=== PATIENT | female | born 2000 | race African-American/Black ===

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

== ENCOUNTER → 2019-01-22 10:34 | Outpatient (CLI) | payer OTHER, SELFPAY ==
--- NOTE | 2019-01-22 10:49 | US_ITS ---
US transvaginal HISTORY: ITS.REASON: US T/V- Abnormal and painful periods ORDERING PHYSICIAN: Lupillo Riggins MD PATIENT AGE: 18 years Comparison: Transvaginal ultrasound pelvis 09/24/2018 FINDINGS: UTERUS: The uterus measures 6.6 x 2.4 x 4.0 cm. Combined endometrial thickness is 0.2 cm. RIGHT OVARY: 3.7 x 2.6 x 2.7 cm. There are multiple tiny follicular cysts noted. LEFT OVARY: 3.7 x 2.4 x 2.7 cm and contains multiple tiny follicular cysts. CUL-DE-SAC FLUID: There is a small amount of cul-de-sac fluid likely physiologic. OTHER FINDINGS: None IMPRESSION: Normal sized ovaries with multiple follicular cysts similar in appearance to the previous study
[2019-01-22 11:28] LABS: Basophils % 0.6 % (0.1-2.0); Eosinophils # 0.1 K/mm3 (0.0-0.4); Eosinophils % 1.3 % (0.1-12.0); Hematocrit 40.2 % (37.0-47.0); Hemoglobin 12.1 g/dL (12.2-16.2); Lymphocytes % 32.4 % (10-50); Mean Corpuscular HGB Conc 30.2 g/dL (31.8-35.4); Mean Corpuscular Hemoglobin 26.8 pg (27.0-31.2); Mean Corpuscular Volume 88.8 fl (81-99); Mean Platelet Volume 7.2 fl (7.4-10.4); Monocytes # 0.3 K/mm3 (0.1-1.0); Monocytes % 5.2 % (1.7-9.3); Neutrophils # 3.8 K/mm3 (1.8-7.8); Neutrophils % 60.5 % (37.0-80.0); Platelet Count 260 K/mm3 (142-424); Red Blood Count 4.53 M/mm3 (4.20-5.40); White Blood Count 6.3 K/mm3 (4.5-13.0)
[2019-01-22 14:05] LABS: Alanine Aminotransferase 17 U/L (12-78); Albumin Level 3.7 gm/dL (3.4-5.0); Albumin/Globulin Ratio 1.3 (1.1-1.8); Alkaline Phosphatase 58 U/L (46-116); Anion Gap 15.2 mEq/L (5-15); Aspartate Amino Transferase 14 U/L (15-37); Bilirubin,Total 0.1 mg/dL (0.2-1.0); Blood Urea Nitrogen 12 mg/dL (7-18); Calcium 8.5 mg/dL (8.5-10.1); Carbon Dioxide 27 mmol/L (21.0-32.0); Chloride 106 mmol/L (98-107); Creatinine,Serum 0.67 mg/dL (0.55-1.02); Estimated Glomerular Filt Rate 113 ml/min (>60); Free Thyroxine Index 2.2 ug/dL (5.93-13.13); GFR (African American) 137 ML/MIN (>60); Globulin 2.9 gm/dl (1.3-3.2); Glucose 82 mg/dL (74-106); Potassium 4.2 mmoL/L (3.5-5.1); Sodium 144 mmol/L (136-145); Thyroid Stimulating Hormone 1.26 uIU/ml (0.516-4.13); Total Protein,Serum 6.6 gm/dL (6.4-8.2); Triiodothryronine (T3) Uptake 32 % (31-39)
[2019-01-23 20:51] LABS: FSH 5.7 mIU/mL (.); LH 11.3 mIU/mL (.); Prolactin 23.3 ng/mL (4.8-23.3)
== END ==
PROVIDERS: PCP Emergency Medicine; Visit Provider Nurse Practitioner Obstetrics & Gynecology
DX: N92.6 Irregular menstruation, unspecified (principal); N94.6 Dysmenorrhea, unspecified
CPT/HCPCS: 36415; 76830; 80053; 83001; 83002; 84146; 84436; 84443; 84479; 85025

== ENCOUNTER 2019-02-02 15:36 | Emergency (ER) | payer OTHER, SELFPAY ==
[2019-02-02 15:37] VITALS: BP 124/68; PULSE 100; RESP 20; TEMP 36.8; O2SAT 98; BMI 23.0
--- NOTE | 2019-02-02 15:51 | HMH.EDUTC ---
[facility] [place] Clinical Impression: Irritable bowel syndrome Qualifiers: Irritable bowel syndrome type: unspecified Qualified Code(s): K58.9 - Irritable bowel syndrome without diarrhea Disposition: Home, Self-Care Condition on Discharge: Good Instructions: Irritable Bowel Syndrome, High-Fiber Diet, DI for Irritable Bowel Syndrome Additional Instructions: Eat a high fiber diet. Discuss getting a referral to a account coordinator with your primary care provider. Drink plenty of water. You should drink at least 64 ounces per day. Off work tonight. GO TO THE ER FOR ANY WORSENING SYMPTOMS Prescriptions: Inulin [Fiber Gummies] 2 gm PO DAILY #1 bottle Referrals: Yudith Gomez PA [Primary Care Provider] - Forms: Work/School Release Time of Disposition: 16:19 Medical Decision Making - Medical Records Medical records reviewed: Yes: I reviewed the patient's medical records. - Arsh Inquiry Pt receiving controlled substance: No Arsh was queried for this patient: No Vital Signs: 02/02/19 15:37 02/02/19 16:25 Temperature 98.3 F 98.3 F Temperature Source Oral Pulse Rate 100 H Pulse Rate [Right Radial] 100 H Respiratory Rate 20 20 Blood Pressure 124/68 Blood Pressure [Right Arm] 124/68 Blood Pressure Mean [Right Arm] 86 Blood Pressure Source [Right Arm] Automatic Cuff Blood Pressure Position [Right Arm] Sitting 02 Sat by Pulse Oximetry 98 Oxygen Delivery Method Room Air Orders (Tests/Meds): ED MEDICATIONS Discontinued Medications Generic Name Dose Route Start Last Admin Trade Name Freq PRN Reason Stop Dose Admin Ketorolac Tromethamine 60 mg 02/02/19 16:13 02/02/19 16:03 Toradol 60mg/2ml Vial IM 02/02/19 16:14 60 mg ONCE ONE Administration [facility] [place] - General Stated complaint: Stomach Pain/Constipated Time Seen by Provider: 02/02/19 15:52 - History of Present Illness Provider Complaint: She c/o episodes of abdominal and cramping. She has had this problem intermitently for the past 2 to 3 years, but it is getting worse. She has an appointment with her primary care provider in 2 days for this issue, but she is having worse abdominal pain today. - Related Data Previous Rx's Medication Instructions Recorded [id number]-ohamrxyderknwmu-ZQ 5 ml PO Q4-6H PRN #118 ml 01/27/19 2 mg-30 mg-10 mg/5 mL oral syrup doxycycline monohydrate 100 mg 100 mg PO BID 5 Days #10 cap 01/27/19 capsule prednisone 20 mg tablet 20 mg PO BID 5 Days #10 tab 01/27/19 Inulin [Fiber Gummies] 2 gm PO DAILY #1 bottle 02/02/19 Allergies Allergy/AdvReac Type Severity Reaction Status Date / Time No Known Allergies Allergy Verified 01/27/19 16:27 [facility] History - Hepatitis A Screen Attestation statement:: This patient has been screened for Hepatitis A risk factors. I have reviewed the patient's past medical history: Yes Medical History: Reports:: Anxiety, Depression, Migraine Denies:: Cancer, Diabetes Mellitus Type 1, Diabetes Mellitus Type 2, MRSA Comment: Ibs, Heavy periods. Laterality Cases: Other Surgeries: Yes: No Previous Surgery, Other Amputation: No Fractures: No - Social History Smoking Status: Current every day smoker Tobacco Type: cigarettes # Packs/Day (cigarettes): 1 Alcohol Intake: current Substance Use Type: marijuana Occupational Status: employed Housing: house Household Members: family - Psychiatric History Pschychiatric History:: Reports:: Anxiety, Depression Family Hx:: Diabetes, Hypertension ROS Obtained: Yes All systems reviewed & no additional complaints - Constitutional Constitutional: Denies chills, Denies fever(s) - Eyes Eyes: Denies eye discharge - ENT Ears, Nose, Mouth, and Throat: Denies sore throat - Cardiovascular Cardiovascular: Denies chest pain - Respiratory Respiratory: No chest congestion, No cough - Gastrointestinal Gastrointestingal: Reports: as per HPI Physical Exam - General Gene
--- NOTE | 2019-02-02 16:01 | ED_ITS ---
[facility] [place] Clinical Impression: Irritable bowel syndrome Qualifiers: Irritable bowel syndrome type: unspecified Qualified Code(s): K58.9 - Irritable bowel syndrome without diarrhea Disposition: Home, Self-Care Condition on Discharge: Good Instructions: Irritable Bowel Syndrome, High-Fiber Diet, DI for Irritable Bowel Syndrome Additional Instructions: Eat a high fiber diet. Discuss getting a referral to a blueprint developer with your primary care provider. Drink plenty of water. You should drink at least 64 ounces per day. Off work tonight. GO TO THE ER FOR ANY WORSENING SYMPTOMS Prescriptions: Inulin [Fiber Gummies] 2 gm PO DAILY #1 bottle Referrals: Yudith Gomez PA [Primary Care Provider] - Forms: Work/School Release Time of Disposition: 16:19 Medical Decision Making - Medical Records Medical records reviewed: Yes: I reviewed the patient's medical records. - Arsh Inquiry Pt receiving controlled substance: No Arsh was queried for this patient: No Vital Signs: 02/02/19 15:37 02/02/19 16:25 Temperature 98.3 F 98.3 F Temperature Source Oral Pulse Rate 100 H Pulse Rate [Right Radial] 100 H Respiratory Rate 20 20 Blood Pressure 124/68 Blood Pressure [Right Arm] 124/68 Blood Pressure Mean [Right Arm] 86 Blood Pressure Source [Right Arm] Automatic Cuff Blood Pressure Position [Right Arm] Sitting 02 Sat by Pulse Oximetry 98 Oxygen Delivery Method Room Air Orders (Tests/Meds): ED MEDICATIONS Discontinued Medications Generic Name Dose Route Start Last Admin Trade Name Freq PRN Reason Stop Dose Admin Ketorolac Tromethamine 60 mg 02/02/19 16:13 02/02/19 16:03 Toradol 60mg/2ml Vial IM 02/02/19 16:14 60 mg ONCE ONE Administration [facility] [place] HPI - General Stated complaint: Stomach Pain/Constipated Time Seen by Provider: 02/02/19 15:52 - History of Present Illness Provider Complaint: She c/o episodes of abdominal and cramping. She has had this problem intermitently for the past 2 to 3 years, but it is getting worse. She has an appointment with her primary care provider in 2 days for this issue, but she is having worse abdominal pain today. - Related Data Previous Rx's Medication Instructions Recorded mhlxpagytipadoz-fqoascrakbwnnhg-BV 5 ml PO Q4-6H PRN #118 ml 01/27/19 2 mg-30 mg-10 mg/5 mL oral syrup doxycycline monohydrate 100 mg 100 mg PO BID 5 Days #10 cap 01/27/19 capsule prednisone 20 mg tablet 20 mg PO BID 5 Days #10 tab 01/27/19 Inulin [Fiber Gummies] 2 gm PO DAILY #1 bottle 02/02/19 Allergies Allergy/AdvReac Type Severity Reaction Status Date / Time No Known Allergies Allergy Verified 01/27/19 16:27 [facility] History - Hepatitis A Screen Attestation statement:: This patient has been screened for Hepatitis A risk factors. I have reviewed the patient's past medical history: Yes Medical History: Reports:: Anxiety, Depression, Migraine Denies:: Cancer, Diabetes Mellitus Type 1, Diabetes Mellitus Type 2, MRSA Comment: Ibs, Heavy periods. Laterality Cases: Other Surgeries: Yes: No Previous Surgery,
[2019-02-02 16:25] VITALS: BP 124/68; PULSE 100; RESP 20; TEMP 36.8; O2SAT 98
== END 2019-02-02 16:25 | disposition home or self-care (01) ==
PROVIDERS: Emergency Provider Nurse Practitioner Family; PCP Physician Assistant
DX: K58.9 Irritable bowel syndrome, unspecified (principal); F41.8 Other specified anxiety disorders; F17.210 Nicotine dependence, cigarettes, uncomplicated; G43.709 Chronic migraine without aura, not intractable, without status migrainosus
CPT/HCPCS: 96372; 99202

== ENCOUNTER → 2019-02-04 13:23 | Outpatient (CLI) | payer OTHER, SELFPAY ==
[2019-02-04 13:35] LABS: Basophils % 0.5 % (0.1-2.0); Eosinophils # 0.1 K/mm3 (0.0-0.4); Hematocrit 39.5 % (37.0-47.0); Hemoglobin 11.7 g/dL (12.2-16.2); Lymphocytes # 2.4 K/mm3 (0.7-4.5); Mean Corpuscular HGB Conc 29.7 g/dL (31.8-35.4); Mean Corpuscular Hemoglobin 25.1 pg (27.0-31.2); Mean Corpuscular Volume 84.5 fl (81-99); Mean Platelet Volume 7.8 fl (7.4-10.4); Monocytes # 0.6 K/mm3 (0.1-1.0); Monocytes % 7.8 % (1.7-9.3); Neutrophils # 4.6 K/mm3 (1.8-7.8); Neutrophils % 59.6 % (37.0-80.0); Platelet Count 287 K/mm3 (142-424); Red Blood Count 4.68 M/mm3 (4.20-5.40); Red Cell Distribution Width 13.6 % (11.5-17.5); White Blood Count 7.7 K/mm3 (4.5-13.0)
[2019-02-04 15:14] LABS: Alanine Aminotransferase 20 U/L (12-78); Albumin Level 3.8 gm/dL (3.4-5.0); Albumin/Globulin Ratio 1.3 (1.1-1.8); Alkaline Phosphatase 57 U/L (46-116); Anion Gap 16.1 mEq/L (5-15); Aspartate Amino Transferase 16 U/L (15-37); Bilirubin,Total 0.3 mg/dL (0.2-1.0); Blood Urea Nitrogen 11 mg/dL (7-18); Calcium 8.8 mg/dL (8.5-10.1); Carbon Dioxide 26 mmol/L (21.0-32.0); Chloride 106 mmol/L (98-107); Chol/HDL Ratio 3.4 (1-3.5); Cholesterol 171 mg/dL (140-200); Creatinine,Serum 0.69 mg/dL (0.55-1.02); Estimated Glomerular Filt Rate 110 ml/min (>60); GFR (African American) 133 ML/MIN (>60); Glucose 74 mg/dL (74-106); HDL Cholesterol 50 mg/dL (29-89); LDL Cholesterol 107 mg/dL (0-130); Potassium 4.1 mmoL/L (3.5-5.1); Sodium 144 mmol/L (136-145); T4 (Thyroxine) 9.2 ug/dl (5.4-10.6); Thyroid Stimulating Hormone 2.18 uIU/ml (0.516-4.13); Total Protein,Serum 6.8 gm/dL (6.4-8.2); Triglycerides 69 mg/dL (30-200); VLDL Cholesterol 14 mg/dL (0-40)
[2019-02-04 15:26] LABS: C-Reactive Protein < 0.2 mg/L (0.0-0.9)
[2019-02-04 15:27] LABS: Erythrocyte Sedimentation Rate 10 mm/hr (0-20)
[2019-02-05 11:42] LABS: HCG Qualitative, Serum Negative (Negative)
[2019-02-05 12:02] LABS: Ferritin 8 ng/mL (8-388)
[2019-02-06 08:30] LABS: Iron 41 ug/dL (27-159); UIBC 349 ug/dL (131-425)
[2019-02-07 21:39] LABS: Iron Saturation 11 % (15-55)
== END ==
PROVIDERS: Visit Provider Physician Assistant
DX: R10.9 Unspecified abdominal pain (principal); D64.9 Anemia, unspecified
CPT/HCPCS: 80053; 80061; 82728; 83540; 83550; 84436; 84443; 84703; 85025; 85651; 86140

== ENCOUNTER → 2019-03-01 11:59 | Outpatient (CLI) | payer OTHER, SELFPAY ==
[2019-03-01 13:34] LABS: HCG Qualitative, Serum Negative (Negative)
[2019-03-02 07:10] LABS: Hep A Ab, IgM Negative (Negative); Hepatitis B Core Antibody IgM Negative (Negative); Hepatitis B Surface Antigen Negative (Negative)
[2019-03-02 12:58] LABS: HSV 2 IgG, Type Spec <0.91 index (0.00-0.90); Rapid Plasma Reagin Ab Titer Non Reactive (NonRea<1:1)
[2019-03-02 12:59] LABS: HIV Screen 4th Generation wRfx Non Reactive (Non Reactive); Hepatitis C Antibody 0.1 s/co ratio (0.0-0.9)
[2019-03-05 10:30] LABS: Neisseria gonorrhoeae, NAA Negative (Negative)
== END ==
PROVIDERS: Visit Provider Nurse Practitioner Obstetrics & Gynecology
DX: Z72.51 High risk heterosexual behavior (principal)
CPT/HCPCS: 36415; 80074; 84703; 86592; 86695; 86696; 86703; 86790; 87491; 87591; G0432

== ENCOUNTER → 2019-04-07 14:13 | Outpatient (CLI) | payer OTHER, SELFPAY ==
[2019-04-07 14:56] LABS: HCG Qualitative, Serum Negative (Negative)
[2019-04-14 05:19] LABS: Neisseria gonorrhoeae, NAA Negative (Negative)
== END ==
PROVIDERS: Visit Provider Nurse Practitioner Obstetrics & Gynecology
DX: N93.9 Abnormal uterine and vaginal bleeding, unspecified (principal); Z72.51 High risk heterosexual behavior
CPT/HCPCS: 36415; 84703; 87491; 87591

== ENCOUNTER → 2019-07-26 12:00 | Outpatient (CLI) | payer OTHER, SELFPAY ==
[2019-07-26 12:17] LABS: Basophils % 0.5 % (0.1-2.0); Eosinophils # 0.1 K/mm3 (0.0-0.4); Eosinophils % 0.9 % (0.1-12.0); Hematocrit 42.7 % (37.0-47.0); Hemoglobin 12.8 g/dL (12.2-16.2); Lymphocytes # 1.8 K/mm3 (0.7-4.5); Lymphocytes % 21.2 % (10-50); Mean Corpuscular HGB Conc 29.9 g/dL (31.8-35.4); Mean Corpuscular Hemoglobin 26.5 pg (27.0-31.2); Mean Corpuscular Volume 88.7 fl (81-99); Mean Platelet Volume 7.2 fl (7.4-10.4); Monocytes # 0.3 K/mm3 (0.1-1.0); Monocytes % 3.9 % (1.7-9.3); Neutrophils # 6.2 K/mm3 (1.8-7.8); Neutrophils % 73.4 % (37.0-80.0); Platelet Count 275 K/mm3 (142-424); Red Blood Count 4.82 M/mm3 (4.20-5.40); Red Cell Distribution Width 14.9 % (11.5-17.5); White Blood Count 8.5 K/mm3 (4.5-13.0)
[2019-07-26 14:18] LABS: Alanine Aminotransferase 15 U/L (12-78); Albumin/Globulin Ratio 1.4 (1.1-1.8); Alkaline Phosphatase 55 U/L (46-116); Anion Gap 13.3 mEq/L (5-15); Aspartate Amino Transferase 13 U/L (15-37); Bilirubin,Total 0.2 mg/dL (0.2-1.0); Blood Urea Nitrogen 9 mg/dL (7-18); Calcium 8.4 mg/dL (8.5-10.1); Carbon Dioxide 27 mmol/L (21.0-32.0); Chloride 108 mmol/L (98-107); Estimated Glomerular Filt Rate 129 ml/min (>60); GFR (African American) 156 ML/MIN (>60); Globulin 2.8 gm/dl (1.3-3.2); Glucose 70 mg/dL (74-106); Potassium 4.3 mmoL/L (3.5-5.1); Sodium 144 mmol/L (136-145); Total Protein,Serum 6.8 gm/dL (6.4-8.2)
== END ==
PROVIDERS: Visit Provider Nurse Practitioner Obstetrics & Gynecology
DX: N93.9 Abnormal uterine and vaginal bleeding, unspecified (principal)
CPT/HCPCS: 36415; 80053; 85025

== ENCOUNTER → 2019-10-06 13:55 | Outpatient (CLI) | payer OTHER, SELFPAY ==
[2019-10-06 17:34] LABS: HCG,Quantitative 42 mIU/ml (0-5.42)
== END ==
PROVIDERS: Visit Provider Nurse Practitioner Obstetrics & Gynecology
DX: Z34.90 Encounter for supervision of normal pregnancy, unspecified, unspecified trimester (principal)
CPT/HCPCS: 36415; 84702

== ENCOUNTER → 2019-10-21 08:16 | Outpatient (CLI) | payer OTHER, SELFPAY ==
[2019-10-21 10:15] LABS: HCG,Quantitative 16006 mIU/ml (0-5.42)
--- NOTE | 2019-10-21 12:28 | US_ITS ---
PROCEDURE: US OB TRANSVAGINAL CLINICAL INDICATION: OB TV US for spotting and possible threatened ab Early with spotting COMPARISON: TRANVAG US transvaginal from 01/22/2019 FINDINGS: There is an intrauterine gestational sac present with yolk sac noted. What may be a crown-rump length is present measuring 1.2 mm too small to evaluate. There is a 3.3 cm left ovarian cyst. There is blood flow in the left ovary. The right ovary is unremarkable with blood flow. A small amount of fluid is in cul-de-sac IMPRESSION: There is an intrauterine gestational sac present with pole. Cannot confirm viability at this time. Follow-up recommended Dictated by: Ra Hoyt MD 10/21/2019 14:12 Electronically signed by Ra Hoyt MD in [place] 10/21/2019 14:12
== END ==
PROVIDERS: Visit Provider Nurse Practitioner Obstetrics & Gynecology
DX: O20.0 Threatened abortion (principal); O26.851 Spotting complicating pregnancy, first trimester
CPT/HCPCS: 36415; 76817; 84702

== ENCOUNTER 2019-11-11 11:02 | Outpatient (CLI) | payer OTHER, SELFPAY ==
[2019-11-11 11:42] LABS: Basophils % 0.2 % (0.1-2.0); Eosinophils # 0.2 K/mm3 (0.0-0.4); Eosinophils % 1.6 % (0.1-12.0); Hematocrit 38.7 % (37.0-47.0); Hemoglobin 12.9 g/dL (12.2-16.2); Lymphocytes # 1.3 K/mm3 (0.7-4.5); Lymphocytes % 9.2 % (10-50); Mean Corpuscular HGB Conc 33.2 g/dL (31.8-35.4); Mean Corpuscular Hemoglobin 27.4 pg (27.0-31.2); Mean Corpuscular Volume 82.5 fl (81-99); Mean Platelet Volume 7.4 fl (7.4-10.4); Monocytes # 0.4 K/mm3 (0.1-1.0); Monocytes % 3.2 % (1.7-9.3); Neutrophils # 11.9 K/mm3 (1.8-7.8); Neutrophils % 85.8 % (37.0-80.0); Platelet Count 285 K/mm3 (142-424); Red Cell Distribution Width 14.6 % (11.5-17.5); White Blood Count 13.9 K/mm3 (4.5-13.0)
[2019-11-11 11:51] LABS: MANUAL DIFFERENTIAL MANUAL DIFFERENTIAL (MANUAL DIFF)
[2019-11-11 11:52] VITALS: BMI 22.6
[2019-11-11 12:10] VITALS: BP 126/68; PULSE 72; RESP 18; TEMP 36.7; O2SAT 99; BMI 22.6
[2019-11-11 12:28] LABS: Barbiturates Screen,Urine Negative ng/ml (<200)
[2019-11-11 12:29] LABS: Amphetamine/Metha Screen,Urine Negative ng/ml (<1000); Benzodiazepines Screen,Urine Negative ng/ml (<200)
[2019-11-11 12:30] LABS: Cannabinoid Screen,Urine Positive ng/ml (<50)
[2019-11-11 12:31] LABS: Microscopic, Urine URINE MICROSCOPIC (MICROSCOPIC)
[2019-11-11 12:31] LABS: Cocaine Screen,Urine Negative ng/ml (<300); Methadone Screen,Urine Negative ng/ml (<300)
[2019-11-11 12:32] LABS: Opiate Screen,Urine Negative ng/ml (<300)
[2019-11-11 12:33] LABS: Phencyclidine Screen,Urine Negative ng/ml (<25)
[2019-11-11 12:34] LABS: Appearance,Urine CLEAR (Clear); Bilirubin,Urine Negative (Negative); Blood, Urine Negative (Negative); Color,Urine YELLOW (Yellow); Glucose,Urine (UA) Negative (Negative); Ketones,Urine 2+ (Negative); Leukocyte Esterase,Urine Negative (Negative); Nitrate,Urine Negative (Negative); Protein,Urine 1+ (Negative); Specific Gravity, Urine 1.025 (1.005-1.030); Urobilinogen,Urine 0.2 EU/dl (0.2)
[2019-11-11 12:35] LABS: Eosinophils % 1 % (0-3); Lymphocytes % 12 % (10-50); Monocytes % 4 % (2-9); Neutrophils % 83 % (42-76); Total Cells Counted 100
[2019-11-11 12:36] LABS: Platelet Estimate Normal
[2019-11-11 12:37] LABS: Hypochromasia 1+
[2019-11-11 12:43] LABS: Bacteria,Urine 2+ /lpf
[2019-11-12 03:36] LABS: HIV Screen 4th Generation wRfx Non Reactive (Non Reactive)
[2019-11-12 08:59] LABS: Hepatitis B Surface Antigen Negative (Negative); Hepatitis C Antibody <0.1 s/co ratio (0.0-0.9)
[2019-11-12 12:12] LABS: Rapid Plasma Reagin Ab Titer Non Reactive (NonRea<1:1); Rubella Antibodies, IgG 2.38 index (Immune >0.99)
[2019-11-12 17:54] LABS: HSV 2 IgG Supplemental Testing Positive (Negative); HSV 2 IgG, Type Spec 1.56 index (0.00-0.90)
[2019-11-12 21:39] LABS: Neisseria gonorrhoeae, NAA Negative (Negative)
== END 2019-11-11 14:18 | disposition home or self-care (01) ==
LOC: LAB 11:03 → OBOUT 11:39 → OB 11:39
PROVIDERS: PCP Physician Assistant; Visit Provider Nurse Practitioner Obstetrics & Gynecology
DX: O21.9 Vomiting of pregnancy, unspecified (principal); Z3A.10 10 weeks gestation of pregnancy
CPT/HCPCS: 36415; 80305; 81001; 85007; 85025; 86592; 86695; 86703; 86762; 86790; 86850; 87086; 87340; 87380; 87491; 87591; 96365; G0432; G0463

== ENCOUNTER 2019-11-28 11:28 | Emergency (ER) | payer OTHER, SELFPAY ==
[2019-11-28 11:29] VITALS: BP 140/76; PULSE 100; RESP 18; O2SAT 99; BMI 24.3
--- NOTE | 2019-11-28 12:04 | HMH.EDUTC ---
[facility] – [place] Disposition Clinical Impression: Laceration Disposition: Home, Self-Care Condition on Discharge: Good Instructions: DI for Laceration Repair Additional Instructions: keep area clan and dry watch for signs of infection if any concerns return or be seen in ed return in 7-10 days for sutures removed Prescriptions: cephALEXin [Keflex 500mg Cap] 500 mg PO BID 10 Days #20 cap Prescription Printed Referrals: Yudith Gomez PA [Primary Care Provider] - Time of Disposition: 12:10 Medical Decision Making - Arsh Inquiry Pt receiving controlled substance: No Vital Signs: 11/28/19 11:29 Pulse Rate [Radial] 100 H Respiratory Rate 18 Blood Pressure [Right Arm] 140/76 Blood Pressure Mean [Right Arm] 97 Blood Pressure Source [Right Arm] Automatic Cuff Blood Pressure Position [Right Arm] Sitting 02 Sat by Pulse Oximetry 99 Oxygen Delivery Method Room Air Orders (Tests/Meds): ED MEDICATIONS Discontinued Medications Generic Name Dose Route Start Last Admin Trade Name Freq PRN Reason Stop Dose Admin Tetanus/Diphtheria Toxoids 0.5 ml 11/28/19 11:51 11/28/19 12:00 Tenivac 0.5ml Syringe IM 11/28/19 11:52 0.5 ml .ONCE ONE Administration - Physician Consults Physician Consulted: kraig hagan Time: 12:07 Reason -: Other Comment/Response: ok to give tdap and lidocaine. Additional Consult: dr asencio Time: 12:04 Reason -: Other Comment/Response: dtap is ok [facility] [place] HPI - General Chief complaint: Wound/Laceration Stated complaint: lac right leg AO [id number] Time Seen by Provider: 11/28/19 12:04 Mode of Arrival: Ambulatory Source of Information: Patient Limitations: No Limitations Description of Symptoms (Recalled from Triage Doc. by RN): CUT LEG ON A PIECE OF METAL HEENT Symptoms (Recalled from RN notes): No Resp Symptoms (Recalled from RN notes): No Skin Symptoms (Recalled from RN notes): Yes MS Symptoms (Recalled from RN notes): No Functional Status (Recalled from RN notes): WNL - History of Present Illness Provider Complaint: 18 yr old female presents for laceration to rt thigh. Pt states she was walking past the chair and there was wire there that snagged her leg. pt states she is 11 weeks . - Related Data Home Medications Medication Instructions Recorded Confirmed Vit No.129/Iron/Folic 1 each PO DAILY 10/26/19 11/11/19 [ One Daily Tablet] Valacyclovir HCl [Valacyclovir] 500 mg PO DAILY 10/26/19 11/11/19 hydroxyzine HCl 25 mg tablet PO 11/11/19 11/11/19 lamotrigine 100 mg tablet PO 11/11/19 11/11/19 ondansetron 4 mg disintegrating PO 11/11/19 11/11/19 tablet Previous Rx's Medication Instructions Recorded Promethazine HCl [Phenergan 25mg 25 mg PO Q6H PRN #20 tab 10/09/19 tab] Promethazine HCl [Phenergan 12.5mg 12.5 mg RC Q6H PRN #10 supp.rect 11/03/19 Supp] promethazine 6.25 mg/5 mL oral 12.5 mg PO QID PRN #473 ml 11/22/19 syrup cephALEXin [Keflex 500mg Cap] 500 mg PO BID 10 Days #20 cap 11/28/19 Allergies Allergy/AdvReac Type Severity Reaction Status Date / Time No Known Allergies Allergy Verified 11/11/19 10:04 - Worker's Comp Is this a Worker's Comp case?: No [facility] History - Hepatitis A Screen Drug use history?: No High risk sexual behaviors?: No History of sexually transmitted infection?: No Currently employed?: No Childcare worker?: No Do you have indoor plumbing?: Yes Do you have electricity?: Yes Attestation statement:: This patient has been screened for Hepatitis A risk factors. I have reviewed the patient's past medical history: Yes Medical History: Reports:: Anxiety, Depression, Migraine Denies:: Cancer, Diabetes Mellitus Type 1, Diabetes Mellitus Type 2, MRSA Comment: Ibs, Heavy periods. Cold sores in vaginal area. Laterality Cases: Bilateral: Myringotomy (Ear Tubes) Other Surgeries: Yes: No Previous Surgery, Other. No: Amputation: No Fractures: No - Social Histo
[2019-11-28 12:13] VITALS: BP 140/76; PULSE 90; RESP 18; TEMP 36.7; O2SAT 99
== END 2019-11-28 12:15 | disposition home or self-care (01) ==
LOC: UTC 12:11
PROVIDERS: Emergency Provider Nurse Practitioner Family; PCP Physician Assistant
DX: S71.111A Laceration without foreign body, right thigh, initial encounter (principal); Z33.1 Pregnant state, incidental; Z79.899 Other long term (current) drug therapy; G43.909 Migraine, unspecified, not intractable, without status migrainosus; Z87.891 Personal history of nicotine dependence; Z83.3 Family history of diabetes mellitus; Z82.49 Family history of ischemic heart disease and other diseases of the circulatory system; F41.9 Anxiety disorder, unspecified; F32.9 Major depressive disorder, single episode, unspecified; Z23 Encounter for immunization
CPT/HCPCS: 12001; 90471; 90714; 99201

== ENCOUNTER → 2020-01-27 10:10 | Outpatient (CLI) | payer OTHER, SELFPAY ==
--- NOTE | 2020-01-27 10:11 | US_ITS ---
PROCEDURE: US OB /MATERNAL DETAIL CLINICAL INDICATION: 20 weeks gestation of COMPARISON: US OB TRANSVAGINAL from 10/26/2019 FINDINGS: There is a single live fetus present in breech presentation. heart body motion noted. The placenta is posterior with a 5 x 4 x 2 cm hypoechoic area along the lower aspect of the placenta suspicious for an area hemorrhage. The cervix is closed and measures 4 cm transabdominal. Complete survey performed and was unremarkable on the submitted images as in PACS. No discrete anomalies identified on survey imaging by technologist. Active fetus. Three-vessel cord with satisfactory umbilical cord insertion. 4- chamber heart noted. Survey of brain & ventricles Unremarkable. Face and neck survey unremarkable. Diaphragm and chest views unremarkable. Abdomen: Both kidneys noted and unremarkable. Stomach noted and satisfactory. Spine: Survey of the spine satisfactory with no anomalies identified nor imaged. Both arms and legs noted. Amniotic Fluid: Adequate. Maternal adnexa: No significant findings. Measurements: Average ultrasound age 20weeks. Gestational Age 20weeks Estimated due date by ultrasound age 1006/15/2020. Estimated weight 324g BPD = 20weeks 1day OFD = 20 weeks 1 day HC = 19weeks 2days AC = 20weeks 1day FL = 20weeks Growth Percentile= 43% Heart Rate = 150bpm Cerebellum = 20weeks 3days Humerus = 20weeks 1day HC/AC is 1.12 CI is 0.8 FL/BPD is 0.69 FL/AC is 0.22 IMPRESSION: The live IUP in breech presentation with an average ultrasound age of 20 weeks. All parameters correlate with no obvious anomalies. Please see above for detail Placenta is posterior with decreased echogenicity along the lower aspect of the placenta suspicious for hemorrhage Dictated by: Ra Hoyt MD 01/27/2020 17:00 Electronically signed by Ra Hoyt MD in [place] 01/27/2020 17:00
== END ==
PROVIDERS: PCP Physician Assistant; Visit Provider Nurse Practitioner Obstetrics & Gynecology
DX: Z3A.20 20 weeks gestation of pregnancy (principal)
CPT/HCPCS: 76811

== ENCOUNTER → 2020-02-24 15:05 | Outpatient (CLI) | payer OTHER, SELFPAY ==
[2020-02-24 15:21] LABS: Basophils % 0.2 % (0.1-2.0); Eosinophils % 0.2 % (0.1-12.0); Hematocrit 38.1 % (37.0-47.0); Hemoglobin 11.9 g/dL (12.2-16.2); Lymphocytes # 1.3 K/mm3 (0.7-4.5); Mean Corpuscular HGB Conc 31.1 g/dL (31.8-35.4); Mean Corpuscular Hemoglobin 27.5 pg (27.0-31.2); Mean Corpuscular Volume 88.5 fl (81-99); Mean Platelet Volume 8.6 fl (7.4-10.4); Monocytes # 0.4 K/mm3 (0.1-1.0); Monocytes % 4.5 % (1.7-9.3); Neutrophils % 82.1 % (37.0-80.0); Platelet Count 225 K/mm3 (142-424); Red Blood Count 4.31 M/mm3 (4.20-5.40); Red Cell Distribution Width 14.2 % (11.5-17.5); White Blood Count 9.7 K/mm3 (4.5-13.0)
[2020-02-24 15:32] LABS: Chloride 104 mmol/L (98-107)
[2020-02-24 15:33] LABS: Potassium 4.1 mmoL/L (3.5-5.1); Sodium 135 mmol/L (136-145)
[2020-02-24 15:35] LABS: Alanine Aminotransferase 7 U/L (12-78); Alkaline Phosphatase 55 U/L (38-126); Anion Gap 9.1 mEq/L (5-15); Aspartate Amino Transferase 20 U/L (14-36); Bilirubin,Total 0.3 mg/dl (0.2-1.3); Blood Urea Nitrogen 5 mg/dl (7-17); Carbon Dioxide 26 mmol/L (22.0-30.0); Cholesterol 198 mg/dl (140-200); Estimated Glomerular Filt Rate 203 ml/min (>60); GFR (African American) 246 ML/MIN (>60); Iron 85 ug/dL (37-170); Triglycerides 131 mg/dl (30-150); VLDL Cholesterol 26 mg/dL (0-40)
[2020-02-24 15:36] LABS: Albumin Level 3.5 g/dl (3.5-5.0); Albumin/Globulin Ratio 1.3 (1.1-1.8); Calcium 8.7 mg/dl (8.4-10.2); Chol/HDL Ratio 2.8 (1-3.5); Globulin 2.6 g/dL (1.3-3.2); Glucose 93 mg/dl (74-100); HDL Cholesterol 70 mg/dl (40-60); Total Protein,Serum 6.1 g/dl (6.3-8.2)
[2020-02-24 15:46] LABS: Direct LDL Cholesterol 116.45 mg/dL (100-129); Total Iron Binding Capacity 403 ug/dL (265-497)
[2020-02-24 15:54] LABS: T4 (Thyroxine) 14.1 ug/dl (5.53-11.0)
[2020-02-24 16:07] LABS: Thyroid Stimulating Hormone 0.34 uIU/mL (0.465-4.68)
[2020-02-24 16:11] LABS: Ferritin 6.58 ng/ml (6.24-137)
[2020-03-03 11:24] LABS: 1,25 Dihydroxy Vitamin D 123 pg/mL (.); 1,25-Dihydroxy, Vitamin D-2 <10 pg/mL (.); 1,25-Dihydroxy, Vitamin D-3 122 pg/mL (.)
== END ==
PROVIDERS: Visit Provider Physician Assistant
DX: Z34.90 Encounter for supervision of normal pregnancy, unspecified, unspecified trimester (principal)
CPT/HCPCS: 80053; 80061; 82652; 82728; 83540; 83550; 84436; 84443; 85025

== ENCOUNTER → 2021-04-05 14:23 | Outpatient (CLI) | payer OTHER, SELFPAY | PROVIDERS: Visit Provider Physician Assistant | DX: R11.0 Nausea (principal); Z20.822 Contact with and (suspected) exposure to COVID-19 | CPT/HCPCS: U0003 ==

== ENCOUNTER → 2021-05-17 13:54 | Outpatient (CLI) | payer OTHER, SELFPAY | PROVIDERS: PCP Physician Assistant; Visit Provider Nurse Practitioner | DX: Z20.822 Contact with and (suspected) exposure to COVID-19 (principal) | CPT/HCPCS: C9803; U0003; U0005 ==

== ENCOUNTER 2022-07-10 10:21 | Emergency (ER) | payer OTHER, SELFPAY ==
[2022-07-10 10:34] VITALS: BP 118/66; PULSE 78; RESP 20; TEMP 36.8; O2SAT 97; BMI 21.4
--- NOTE | 2022-07-10 11:00 | HMH.EDGENADL ---
Discharge Plan Disposition Patient Disposition: Home, Self-Care Condition: Good Prescriptions Prescriptions: New 400 mcg tablet,chewable 2 tab PO DAILY Qty: 90 0RF ondansetron HCl 4 mg tablet 4 mg PO Q8H PRN (Reason: nausea and vomiting) 4 Days Qty: 20 0RF No Action ondansetron 8 mg tablet,disintegrating 8 mg PO Q8H PRN (Reason: nausea and vomiting) Qty: 30 0RF azithromycin 250 mg tablet See Rx Instructions PO .COMPLEX Qty: 6 0RF Rx Instructions: take 500 mg today (day 1), then 250 mg for 4 days (days 2-5) valacyclovir 500 mg tablet 500 mg PO DAILY Qty: 30 0RF vit no.[id number]-[id number] 1 EACH tablet 1 each PO DAILY Referrals Follow up/Referrals: Yudith Gomez PA [Primary Care Provider] - See instructions Activity Restrictions/Add. Instructions Additional Instructions/Restrictions: Follow-up with your automobile body repairer helper. Instructions Patient Instructions: DI for Diarrhea and Traveler's Diarrhea -- Adult, DI for Diarrhea and Traveler's Diarrhea -- Child, DI for Nausea -- Adult, DI for Nausea -- Child Discharge ED Provider: Feliciano Self General Adult HPI General Chief complaint: Nausea/Vomiting/Diarrhea Stated complaint: vomiting, diarrhea, dizzy Time Seen by Provider: 07/10/22 10:49 Mode of Arrival: Ambulatory Source of Information: Patient Limitations: No Limitations Description of Symptoms (Recalled from ER Triage Doc. by RN): pt to ed c/o lower abd pain, vomiting, diarrhea and dizziness. pt reports she had a miscarriage last month and started feeling bad shortly after. History of Present Illness HPI narrative: Patient presents with vomiting diarrhea that began last night. She describes symptoms as moderate and states she had several episodes of both vomiting as well as diarrhea. She notes some mild abdominal cramping she denies fever she denies respiratory symptoms and she denies hematuria dysuria at this time. She states has not been on antibiotics in several weeks. She presently denies although she is status post 2 miscarriages earlier this year reportedly. Related Data Home Medications Medication Instructions Recorded Confirmed vits no.129-ferrous fum 1 each PO DAILY pregnacy 10/26/19 04/05/21 27 mg iron-folic acid 800 mcg tablet Previous Rx's Medication Instructions Recorded ondansetron 8 mg disintegrating 8 mg PO Q8H PRN nausea and 04/05/21 tablet vomiting #30 tabs valacyclovir 500 mg tablet 500 mg PO DAILY outbreaks #30 tabs 08/16/21 azithromycin 250 mg tablet See Rx Instructions PO .COMPLEX #6 08/18/21 tabs ondansetron HCl 4 mg tablet 4 mg PO Q8H PRN nausea and 07/10/22 vomiting 4 days #20 tabs vitamins no.144-folic 2 tab PO DAILY #90 tabs 07/10/22 acid 400 mcg chewable tablet () Allergies Allergy/AdvReac Type Severity Reaction Status Date / Time No Known Allergies Allergy Verified 04/05/21 11:27 [facility] Medical History (Updated 04/03/20 @ 15:06 by Deborah Mendiola [facility]) Anxiety Bipolar 1 disorder Bipolar disorder Constipation Depression IBS (irritable bowel syndrome) Social History Smoking Status: Never smoker second hand exposure: No alcohol intake: current substance use type: former substance user and marijuana current occupational status: employed Travel in the last 8 weeks: None household members: family housing: house ROS Obtained: Yes All systems reviewed & no additional complaints except as documented Physical Exam General General appearance: alert Head Head exam: atraumatic Eye Eye exam: Present normal appearance ENT ENT exam: Present normal exam and normal oropharynx Neck Neck exam: Present normal inspection Chest Chest inspection: Present normal inspection and symmetric chest wall rise Respiratory Respiratory exam: Present normal lung sounds bilaterally and respiratory distress Cardiovascular Cardiovascular exam: Present
[2022-07-10 11:05] LABS: Microscopic, Urine URINE MICROSCOPIC (MICROSCOPIC)
[2022-07-10 11:09] LABS: Basophils % 0.3 % (0.1-2.0); Eosinophils # 0.1 K/mm3 (0.0-0.4); Eosinophils % 1.1 % (0.1-12.0); Hematocrit 38.3 % (37.0-47.0); Hemoglobin 12.3 g/dL (12.2-16.2); Lymphocytes # 0.9 K/mm3 (0.7-4.5); Lymphocytes % 7.7 % (10-50); Mean Corpuscular HGB Conc 32.2 g/dL (31.8-35.4); Mean Corpuscular Volume 83.8 fl (81-99); Mean Platelet Volume 7.7 fl (7.4-10.4); Monocytes # 0.2 K/mm3 (0.1-1.0); Monocytes % 1.3 % (1.7-9.3); Neutrophils # 10.3 K/mm3 (1.8-7.8); Neutrophils % 89.6 % (37.0-80.0); Platelet Count 253 K/mm3 (142-424); Red Blood Count 4.58 M/mm3 (4.20-5.40); Red Cell Distribution Width 14.6 % (11.5-17.5); White Blood Count 11.5 K/mm3 (4.8-10.8)
[2022-07-10 11:10] LABS: Urine Pregnancy, HCG Qual. Positive (Negative)
[2022-07-10 11:13] LABS: MANUAL DIFFERENTIAL MANUAL DIFFERENTIAL (MANUAL DIFF)
[2022-07-10 11:15] LABS: Chloride 105 mmol/L (98-107); Potassium 3.7 mmoL/L (3.5-5.1); Sodium 136 mmol/L (136-145)
[2022-07-10 11:17] LABS: Alanine Aminotransferase 15 U/L (12-78); Aspartate Amino Transferase 24 U/L (14-36); Blood Urea Nitrogen 12 mg/dl (7-17); Creatinine Clearance Estimated 158 mL/min (50-200); Estimated Glomerular Filt Rate 154 ml/min (>60); GFR (African American) 187 ML/MIN (>60)
[2022-07-10 11:18] LABS: Albumin Level 4.7 g/dl (3.5-5.0); Albumin/Globulin Ratio 1.7 (1.1-1.8); Alkaline Phosphatase 47 U/L (38-126); Anion Gap 12.7 mEq/L (5-15); Appearance,Urine CLEAR (Clear); Bilirubin,Total 0.4 mg/dl (0.2-1.3); Blood, Urine Negative (Negative); Calcium 9.4 mg/dl (8.4-10.2); Carbon Dioxide 22 mmol/L (22.0-30.0); Color,Urine YELLOW (Yellow); Globulin 2.7 g/dL (1.3-3.2); Glucose 96 mg/dl (74-100); Glucose,Urine (UA) Negative (Negative); Ketones,Urine 3+ (Negative); Leukocyte Esterase,Urine Negative (Negative); Nitrate,Urine Negative (Negative); Protein,Urine 1+ (Negative); Total Protein,Serum 7.4 g/dl (6.3-8.2); Urobilinogen,Urine 0.2 EU/dl (0.2)
[2022-07-10 11:24] LABS: Bilirubin,Urine 1+ (Negative)
[2022-07-10 11:32] VITALS: BP 109/65; PULSE 75; O2SAT 100
[2022-07-10 11:34] LABS: Hypochromasia 1+; Lymphocytes % 11 % (10-50); Neutrophils % 87 % (42-76); Platelet Estimate Normal; Total Cells Counted 100
[2022-07-10 11:39] LABS: Bacteria,Urine Trace /lpf; WBC,Urine Occasional #/hpf (0-3)
[2022-07-10 12:00] VITALS: BP 104/61; PULSE 63; O2SAT 99
--- NOTE | 2022-07-10 12:24 | PC.NURSE ---
spoe with lab who states approx 10 mins left for beta results
[2022-07-10 12:56] LABS: HCG,Quantitative 19606 mIU/ml (0-5.42)
[2022-07-10 13:00] VITALS: BP 99/57; PULSE 63; O2SAT 99
--- NOTE | 2022-07-10 13:02 | US_ITS ---
FINAL REPORT CLINICAL HISTORY: -abd pain FINDINGS: PELVIC ULTRASOUND A gestational sac is present in the uterus. A yolk sac is present. A pole is identified with a pole measuring 3.7 mm consistent with 6 weeks 1 day gestation. Heart rate is confirmed at 113 beats per minute. The right ovary measures 3.1 x 2.8 x 2.2 cm. The left ovary measures 3.2 x 1.3 x 1.3 cm. There is a hypoechoic area adjacent to the gestational sac measuring up to 3.9 cm likely representing subchorionic hemorrhage. There is a small amount of pelvic free fluid. IMPRESSION: Single IUP with a gestational age of 6 weeks 1 day. Hypoechoic area adjacent to the gestational sac likely representing subchorionic hemorrhage. Recommend follow-up ultrasound. Reviewed, Interpreted and Dictated by Jesus Rodriguez III, MD Transcribed by Alex Alanis Authenticated and [facility]
--- NOTE | 2022-07-10 13:15 | PC.NURSE ---
radiology taking pt upstairs for an ultrasound
--- NOTE | 2022-07-10 13:19 | PC.NURSE ---
PT GONE TO US
[2022-07-10 14:00] VITALS: BP 141/80; PULSE 74; O2SAT 99
[2022-07-10 14:51] VITALS: BP 121/71; PULSE 84; RESP 20; TEMP 36.7; O2SAT 100
== END 2022-07-10 14:54 | disposition home or self-care (01) ==
PROVIDERS: Emergency Provider Emergency Medicine; PCP Physician Assistant
DX: O23.41 Unspecified infection of urinary tract in pregnancy, first trimester (principal); N39.0 Urinary tract infection, site not specified; Z3A.01 Less than 8 weeks gestation of pregnancy
CPT/HCPCS: 76817; 80053; 81001; 81025; 84702; 85007; 85025; 96365; 96366; 96375; 99284; J2405